=== PATIENT | male | born 1960 | race Caucasian/White ===

== ENCOUNTER → 2017-01-02 16:51 | Emergency (ER) | payer MEDICAID ==
[2014-11-09 09:44] VITALS: BMI 17.1
[~2017-01-02 16:51] MED LIST: LISINOPRIL5 MG PO; SOMA350 MG PO; VALIUM10 MG PO
== END | disposition left against medical advice (07) ==
LOC: D.ER 16:51
DX: Z02.9 Encounter for administrative examinations, unspecified (principal)

== ENCOUNTER → 2017-03-03 10:52 | Outpatient (CLI) | payer MEDICAID ==
[2014-11-09 09:44] VITALS: BMI 17.1
== END | disposition home or self-care (01) ==
LOC: D.MRI 10:52
DX: M75.42 Impingement syndrome of left shoulder (principal); M75.122 Complete rotator cuff tear or rupture of left shoulder, not specified as traumatic

== ENCOUNTER → 2018-01-27 14:10 | Outpatient (CLI) | payer MEDICAID ==
[2014-11-09 09:44] VITALS: BMI 17.1
== END | disposition home or self-care (01) ==
LOC: D.MRI 14:00
DX: M25.512 Pain in left shoulder (principal)

== ENCOUNTER 2018-04-01 05:50 | Day surgery (SDC) | payer MEDICAID ==
[2018-03-31 14:03] LABS: HEMATOCRIT 44.4 % (42.0-54.0); HEMOGLOBIN 15.3 g/dL (13.5-17.5); MCH 31.5 pg (26.0-34.0); MCHC 34.5 g/dL (31.0-37.0); MCV 91.4 fL (80.0-100.0); MEAN PLATELET VOLUME 9.7 fL (7.4-10.4); RBC 4.86 10x6/uL (4.20-6.10); RDW 13.2 % (11.5-14.5); WBC 7.9 10x3/uL (4.8-10.8)
[~2018-04-01] VITALS: Ht 167.6 cm; Wt 77.1 kg
--- NOTE | ~2018-04-01 | OP ---
PATIENT NAME: MEEK ARREOLA MEDICAL RECORD: [id number] LOCATION:D.OPS ADMISSION DATE: SURGEON: RYAN WESLEY MD DATE OF OPERATION: 04/01/2018 PREOPERATIVE DIAGNOSIS: Residual biceps tendinitis. POSTOPERATIVE DIAGNOSIS: Residual biceps tendinitis. PROCEDURE: Arthroscopic biceps tenotomy. SURGEON: Ryan Wesley MD ANESTHESIA: General. INTRAOPERATIVE COMPLICATIONS: None. SUMMARY OF PATHOLOGIC FINDINGS: The patient was indeed found to have substantial biceps tendinitis in the postoperative period after undergoing a subacromial decompression, distal clavicle excision. Given the amount of tendinopathy, I felt like that the release was better than tenodesis. OPERATIVE SUMMARY IN DETAIL: After obtaining the appropriate preoperative orthopedic surgery consent as well as anesthetic consultation, evaluation and clearance the placed was brought to the operating room and on the operating table in supine position. After general laryngeal mask airway was administered, the patient was placed in right lateral decubitus position. All pressure points were well padded to include down leg peroneal pad as well as axillary roll. The patient was held firmly to the operating table using the vacuum pack suction system. Left upper extremity and shoulder were then prepped and draped in routine sterile fashion. The arm was held in Arthrex arm holding device at 30 degrees of forward flexion, 30 degrees of abduction, 10 pounds of traction laterally. Arthroscopy was established in the glenohumeral joint from the posterior portal. Anterior portal was established in the anterior safe interval. Diagnostic arthroscopy revealed the above findings. Payette tissue ablation system was utilized to perform biceps tenotomy. Having completed this, arthroscopy was established in the subacromial region. The patient's previous subacromial decompression, distal clavicle excision, seemed to be thorough. There were no rotator cuff changes. At this point, arthroscopy portals were closed in routine interrupted fashion using 4-0 Prolene. Sterile dressings were applied. The patient was awakened, taken to the recovery room in stable condition. All final needle and sponge counts were correct. TRANSINT:[id number] Voice Confirmation ID: [id number] DOCUMENT ID: [id number] RYAN WESLEY MD at 0939 CC: [id number] DICTATION DATE: 04/07/18816 CLIENT PARTNER: 04/07/18 0931 DEP SDC 04/01/18 [facility] [address] [place] [address]
[~2018-04-01 05:50] MED LIST changes: +CYCLOBENZAPRINE10 MG PO; +IMITREX100 MG PO; +KLONOPIN1 MG PO; +ULTRAM50 MG PO; +ZESTRIL20 MG PO
[2018-04-01] MEDS ORDERED: MARINOL10 MG PO (06:24)
[2018-04-01 06:35] VITALS: BP 148/96; Ht 167.6 cm; Wt 77.1 kg
[2018-04-01] MEDS ORDERED: PERCOCET 10/3251 TA1 PO (07:53)
== END 2018-04-01 10:06 | disposition home or self-care (01) ==
LOC: D.OPS 05:50 → D.PAN 07:30 → D.OPS 07:30
PROVIDERS: Anesthesiology
DX: M75.22 Bicipital tendinitis, left shoulder (principal); Z01.812 Encounter for preprocedural laboratory examination

== ENCOUNTER → 2018-06-04 15:40 | Outpatient (CLI) | payer MEDICAID ==
[2018-04-01 06:35] VITALS: BMI 27.5
[~2018-06-04 15:40] MED LIST changes: +MARINOL10 MG PO; +PERCOCET 10/3251 TA1 PO
== END | disposition home or self-care (01) ==
LOC: D.MRI 15:30
DX: M25.512 Pain in left shoulder (principal)

== ENCOUNTER → 2019-02-01 14:52 | Outpatient (CLI) | payer MEDICAID ==
[2018-04-01 06:35] VITALS: BMI 27.5
== END | disposition home or self-care (01) ==
LOC: D.MRI 01-28 15:00
PROVIDERS: ATTEND Orthopaedic Surgery
DX: M77.01 Medial epicondylitis, right elbow (principal)